=== PATIENT | female | born 1985 | race Caucasian/White ===

== ENCOUNTER 2018-02-09 20:48 | Emergency (ER) | payer OTHER ==
[~2018-02-09] VITALS: Ht 162.6 cm; Wt 62.6 kg
[2018-02-09 21:05] VITALS: Ht 162.6 cm; Wt 62.6 kg
[2018-02-09 22:29] VITALS: BP 140/88
== END 2018-02-09 22:29 | disposition home or self-care (01) ==
LOC: ED 20:48
DX: N94.6 Dysmenorrhea, unspecified (principal); N93.9 Abnormal uterine and vaginal bleeding, unspecified